=== PATIENT | female | born 1960 | race Caucasian/White ===

== ENCOUNTER 2018-02-22 19:25 | Observation (INO) | payer OTHER, SELFPAY ==
[2018-02-22] VITALS (10 sets, daily range): BP systolic 113–191; BP diastolic 40–83; PULSE 65–86; RESP 16–24; TEMP 37; O2SAT 18–100; BMI 41.8
--- NOTE | 2018-02-22 19:35 | DI.RAD.S_ITS ---
PROCEDURE: XR CHEST 1V INDICATIONS: SHORTNESS OF BREATH TECHNIQUE: One view of the chest was acquired. COMPARISON: None. FINDINGS: Surgical changes and devices: None. Lungs and pleura: No pleural effusions or pneumothorax. Lungs are clear. Mediastinum: Mediastinal contours appear normal. Heart size is normal. Bones and chest wall: No suspicious bony lesions. Overlying soft tissues appear unremarkable. IMPRESSION: No acute pulmonary process. Dictated by: Rosa Lopez M.D. on 02/22/2018 at 20:34 Approved by: Rosa Lopez M.D. on 02/22/2018 at 20:35
--- NOTE | 2018-02-22 19:37 | ED.CHESTPAIN ---
HPI - Chest Pain General Chief Complaint: Chest Pain Stated Complaint: CHEST PAIN COPD COUGH Time Seen by Provider: 02/22/18 19:34 Source: patient Mode of arrival: ambulatory Limitations: no limitations History of Present Illness HPI narrative: The patient is a 57-year-old female who has a history of hypertension hyperlipidemia diabetes and COPD. Presenting with chest pain and shortness of breath. She says she could not sleep last night she describes it as esophagus pain but says this is different than her GERD. She also has a cough with more sputum than normal. She denies any fever or chills. She has also tried her inhalers without any relief. She does cough every time she takes in a deep breath. Her pain is constant nonradiating across her whole chest but not to her back shoulders or jaw. No history of coronary artery disease. She is currently on Chantix trying to quit smoking. She has smoked 2 packs a day for 30 years. MD complaint: chest pain and other (Short of breath) Duration: constant Onset: during rest and during exertion Pain location: substernal Severity: moderate Quality: tightness and dull Treatments prior to arrival chest pain: aspirin ([id number]) Related Data Home Medications Medication Instructions Recorded Confirmed albuterol sulfate [ProAir HFA] 02/22/18 atorvastatin 02/22/18 gabapentin QID 02/22/18 insulin aspart U-100 [Novolog 02/22/18 U-100 Insulin aspart] insulin glargine [Lantus Solostar BID 02/22/18 U-100 Insulin] omeprazole 2 cap 02/22/18 varenicline [Chantix Continuing 02/22/18 Month Box] Allergies Allergy/AdvReac Type Severity Reaction Status Date / Time Penicillins Allergy Intermediate Hives Verified 02/22/18 19:54 Review of Systems Review of Systems All systems reviewed & are unremarkable except as noted in HPI and below Constitutional Denies chills, Denies fever(s), Denies lethargy and Denies weakness Cardiovascular Reports chest pain, Denies syncope, Denies rapid heart rate, Denies irregular heart rhythm, Denies lightheadedness, Denies radiating jaw, neck or arm pain, Denies palpitations, Reports dyspnea and Denies orthopnea Respiratory Denies chest congestion, Reports excessive phlegm production, Denies pain on inspiration, Denies pain with cough and Reports dyspnea Gastrointestinal Gastrointestinal: Denies abdominal pain, Denies change in bowel habits, Denies diarrhea, Denies nausea and Denies vomiting Musculoskeletal Denies back pain, Denies muscle weakness, Denies numbness and Denies tingling Integumentary/Breasts Denies pruritus, Denies erythema, Denies rash and Denies wounds Neurologic Denies syncope, Denies numbness, Denies tingling and Denies weakness Endocrine Denies palpitations PFSH Medical History COPD (chronic obstructive pulmonary disease) (Acute) Colon cancer (Acute) Diabetes (Acute) GERD (gastroesophageal reflux disease) (Acute) Hyperlipidemia (Acute) Hypertension (Acute) Social History household members: spouse Smoking Status: Current every day smoker Tobacco: How many years used: 60 alcohol intake: never substance use type: does not use Exam Initial Vital Signs Initial Vital Signs: Vital Signs Temperature 98.6 F 02/22/18 19:32 Pulse Rate 85 02/22/18 19:32 Respiratory Rate 24 02/22/18 19:32 Blood Pressure 191/83 H 02/22/18 19:32 Pulse Oximetry 99 02/22/18 19:32 GENERAL: Alert and oriented x3 appears in mild respiratory distress due to coughing HEENT: Head atraumatic,EOMI, pupils reactive, face symmetric CARDIOVASCULAR: Regular rate and rhythm without murmurs, rubs or gallops. Pain is not reproducible with palpation RESPIRATORY: Able to speak in full sentences coughs with deep breaths decreased breath sounds bilaterally at bases no wheezing ABDOMEN: Soft, nontender. Normoactive bowel sounds all 4 quadrants. No guarding or rebound. EXTREMITIES: Normal range of motion, no clubbing or edema. Neurovascularly intact NEUROLOGICAL: Alert and oriented x4.Normal gait and speech. Cranial nerves II through XII grossly intact. SKIN: Warm, dry, no laceration, no petechiae, no rashes or lesions. Scores HEART Score Heart Score history: Moderately Suspicious Heart Score EKG: Normal Heart Score Age: 45-64 years old Heart Score risk factors: > 3 risk factors or hx of atherosclerotic disease Heart Score troponin: < or = to normal limit Heart Score Total: 4 PERC Score Age greater than or equal to 50 years: Yes Heart rate greater than or equal to 100 bpm: No Room Air O2 Sat less than 95%: No Unilateral leg swelling: No Recent trauma or surgery: No Hemoptysis: No Prior PE or DVT: No Hormone Use: No Total PERC Score: 1 Wells' Criteria for PE Clinical signs and symptoms of PE: Yes PE is #1 Dx or equally likely: No Heart rate > 100: No Immobilization at least 3 days or surg in previous 4 weeks: No History of PE or DVT: No Hemoptysis: No Malignancy w/Treatment within 6 months or palliative: Yes Wells' PE Score total: 4 Course Orders Ordered: ED Orders 02/22/18 19:34 EKG-12 Lead Stat 02/22/18 19:35 XR chest 1V Stat 02/22/18 20:45 B Type Natriuretic Peptide Stat Blood Culture Stat Complete Blood Count AUTO DIFF Stat Comprehensive Metabolic Panel Stat Lactate (Lactic Acid) Stat Lipase Stat Magnesium Stat Partial Thromboplastin Time Stat Procalcitonin Stat Prothrombin Time INR Stat Troponin & CK Cardiac Panel Stat 02/22/18 21:06 CT angio chest PE protocol Stat 02/23/18 00:07 Consult to Physician Routine Consult to Respiratory Therapy Evaluate & Treat EC echo doppler complete Stat 02/23/18 06:00 Troponin I Stat Sodium Chloride (Normal Saline 0.9%) 1,000 mls @ 125 mls/hr IV CONT LAMINE Last Admin: 02/23/18 00:49 Dose: 125 mls/hr Ondansetron HCl (Zofran) 4 mg IV Q4HR PRN PRN Reason: Nausea And Vomiting Discontinued Medications Acetaminophen (Tylenol) 650 mg PO NOW ONE Stop: 02/22/18 20:56 Last Admin: 02/22/18 20:58 Dose: 650 mg Albuterol (Ventolin) 2.5 mg INH NOW ONE Stop: 02/22/18 21:07 Last Admin: 02/22/18 21:19 Dose: 2.5 mg Albuterol/Ipratropium (Duoneb) 3 ml INH NOW ONE Stop: 02/22/18 19:35 Last Admin: 02/22/18 20:06 Dose: 3 ml Sodium Chloride (Normal Saline 0.9%) 1,000 mls @ 1,000 mls/hr IV BOLUS ONE Stop: 02/22/18 21:56 Last Infusion: 02/22/18 23:38 Dose: 500 mls/hr Admin: 02/22/18 20:58 Dose: 1,000 mls/hr Lorazepam (Ativan) 0.5 mg IV NOW ONE Stop: 02/22/18 22:21 Last Admin: 02/22/18 22:33 Dose: 0.5 mg Methylprednisolone (Solu-Medrol 125 Mg Vial) 125 mg IV NOW ONE Stop: 02/22/18 19:35 Last Admin: 02/22/18 19:57 Dose: 125 mg Nicotine (Nicoderm) 21 mg TOP NOW ONE Stop: 02/22/18 22:21 Last Admin: 02/22/18 23:46 Dose: 21 mg Nitroglycerin (Nitrostat) 0.4 mg SL NOW ONE Stop: 02/22/18 19:35 Last Admin: 02/22/18 19:53 Dose: 0.4 mg Vital Signs - 8 hr 02/22/18 19:32 02/22/18 19:53 02/22/18 19:59 Temperature 98.6 F Pulse Rate 85 72 65 Respiratory Rate 24 Blood Pressure 191/83 H 180/72 H 133/66 Blood Pressure [Left Arm] Pulse Oximetry 99 02/22/18 20:00 02/22/18 21:00 02/22/18 21:30 Temperature Pulse Rate 75 77 82 Respiratory Rate 22 17 16 Blood Pressure Blood Pressure [Left Arm] 133/66 129/49 L 113/53 L Pulse Oximetry 100 100 100 02/22/18 22:30 02/22/18 23:00 02/23/18 00:19 Temperature 98.1 F Pulse Rate 83 81 80 Respiratory Rate 18 20 16 Blood Pressure 137/68 Blood Pressure [Left Arm] 117/40 L 117/57 L Pulse Oximetry 18 L 99 95 MDM - Chest Pain Lab Data Attestation: I reviewed the patient's lab results. Result diagrams: 02/22/18 20:45 02/22/18 20:45 Lab Results 02/22/18 02/22/18 02/22/18 Range/Units 20:45 20:45 20:45 WBC 13.9 H (4.5-11.0) X10^3/uL RBC 4.59 (4.0-5.2) X10^6/uL Hgb 13.6 (12.0-16.0) g/dL Hct 40.7 (36-46) % MCV 88.7 (80-100) fL MCH 29.6 (26-34) PG MCHC 33.3 (30-36) % RDW 13.2 (11.6-14.8) % Plt Count 350 (150-400) X10^3/uL Neut % (Auto) 47.8 L (50-75) % Lymph % (Auto) 43.7 H (25-40) % [place] % (Auto) 6.2 (3-14) % Eos % (Auto) 1.4 L (2-4) % Baso % (Auto) 0.9 (0-2) % Neut # (Auto) 6600 H (7145-7801) /uL PT 9.7 L (10.1-12.7) SECONDS INR 0.9 (0.9-1.3) APTT 32 (26.4-36.2) SECONDS Sodium 135 L (137-145) mmol/L Potassium 3.9 (3.4-5.1) mmol/L Chloride 102 (98-107) mmol/L Carbon Dioxide 24 (22-32) mmol/L BUN 9 (7-17) mg/dL Creatinine 1.00 (0.52-1.04) mg/dL Estimated GFR 57.1 L (>60) mL/min BUN/Creatinine Ratio 9.0 (6-22) Glucose 160 H (70-100) mg/dL Lactate (0.7-2.1) mmol/L Calcium 8.4 (8.4-10.2) mg/dL Magnesium 1.6 (1.6-2.3) mg/dL Total Bilirubin 0.4 (0.2-1.3) mg/dL AST 20 (14-36) IU/L ALT 19 (9-52) IU/L Alkaline Phosphatase 83 (38-126) U/L Total Creatine Kinase 87 (30-135) U/L CK-MB (CK-2) TNP CK-MB (CK-2) Rel Index TNP Troponin I < 0.012 (0.01-0.034) ng/mL B-Natriuretic Peptide < 100.0 (<100) Total Protein 6.5 (6.3-8.2) g/dL Albumin 3.6 (3.5-5.0) g/dL Globulin 2.9 (1.7-4.1) g/dL Albumin/Globulin Ratio 1.2 (1.0-2.8) Lipase 33 (23-300) U/L Procalcitonin (<0.5) ng/mL 02/22/18 02/22/18 Range/Units 20:45 20:45 WBC (4.5-11.0) X10^3/uL RBC (4.0-5.2) X10^6/uL Hgb (12.0-16.0) g/dL Hct (36-46) % MCV (80-100) fL MCH (26-34) PG MCHC (30-36) % RDW (11.6-14.8) % Plt Count (150-400) X10^3/uL Neut % (Auto) (50-75) % Lymph % (Auto) (25-40) % [place] % (Auto) (3-14) % Eos % (Auto) (2-4) % Baso % (Auto) (0-2) % Neut # (Auto) (1307-3630) /uL PT (10.1-12.7) SECONDS INR (0.9-1.3) APTT (26.4-36.2) SECONDS Sodium (137-145) mmol/L Potassium (3.4-5.1) mmol/L Chloride (98-107) mmol/L Carbon Dioxide (22-32) mmol/L BUN (7-17) mg/dL Creatinine (0.52-1.04) mg/dL Estimated GFR (>60) mL/min BUN/Creatinine Ratio (6-22) Glucose (70-100) mg/dL Lactate 1.7 (0.7-2.1) mmol/L Calcium (8.4-10.2) mg/dL Magnesium (1.6-2.3) mg/dL Total Bilirubin (0.2-1.3) mg/dL AST (14-36) IU/L ALT (9-52) IU/L Alkaline Phosphatase (38-126) U/L Total Creatine Kinase (30-135) U/L CK-MB (CK-2) CK-MB (CK-2) Rel Index Troponin I (0.01-0.034) ng/mL B-Natriuretic Peptide (<100) Total Protein (6.3-8.2) g/dL Albumin (3.5-5.0) g/dL Globulin (1.7-4.1) g/dL Albumin/Globulin Ratio (1.0-2.8) Lipase (23-300) U/L Procalcitonin < 0.05 (<0.5) ng/mL Urine Dip Bedside Urine Glucose Negative Bedside Urine Bilirubin - Negative Bedside Urine Ketone - Negative Urine Specific [place] 1.015 Bedside Urine Occult Blood - Negative Bedside Urine pH 6.0 Bedside Urine Protein - Negative Bedside Urine Urobilinogen +/- 1mg Bedside Urine Nitrite - Negative Bedside Urine Leukocytes - Negative Esterase Imaging Data Chest x-ray: Radiologist's impression: PROCEDURE: XR CHEST 1V INDICATIONS: SHORTNESS OF BREATH TECHNIQUE: One view of the chest was acquired. COMPARISON: None. FINDINGS: Surgical changes and devices: None. Lungs and pleura: No pleural effusions or pneumothorax. Lungs are clear. Mediastinum: Mediastinal contours appear normal. Heart size is normal. Bones and chest wall: No suspicious bony lesions. Overlying soft tissues appear unremarkable. IMPRESSION: No acute pulmonary process. Dictated by: Rosa Lopez M.D. on 02/22/2018 at 20:34 CT PE: Radiologist's impression: PROCEDURE: CT ANGIO CHEST PE PROTOCOL INDICATIONS: SOB chest pain, hx of colon CA TECHNIQUE: After the administration of intravenous contrast, 2 mm thick sections acquired from the pulmonary apices to the posterior costophrenic angles. 3-dimensional maximum intensity projection (MIP) coronal and sagittal reformats were then acquired through the thorax. For radiation dose reduction, the following was used: automated exposure control, adjustment of mA and/or kV according to patient size. COMPARISON: [facility], , XR CHEST 1V, 02/22/2018, 19:38. FINDINGS: Image quality: Excellent. Pulmonary arteries: Pulmonary arteries are normal in size, and demonstrate no intraluminal filling defects to suggest central pulmonary embolism. Lungs and pleura: Lungs are clear. No pleural effusions or pneumothorax. Central and peripheral airways are patent. Mediastinum: Heart size is normal, trace pericardial effusion. No mediastinal or hilar adenopathy. Thoracic aorta is normal in caliber and enhancement. Esophagus is normal in caliber, without hiatal hernia. Bones and chest wall: No suspicious bony lesions. Ribs and thoracic spine appear intact throughout. Thyroid gland is unremarkable. No axillary or supraclavicular adenopathy. Abdomen: Visualized upper abdominal solid organs appear normal in the early arterial phase of enhancement. IMPRESSION: 1. No pulmonary embolism. 2. Lungs are clear. 3. Trace pericardial effusion. Dictated by: Rosa Lopez M.D. on 02/22/2018 at 21:46 ECG Data Attestation: I personally reviewed and interpreted this ECG as follows: Prior ECG tracings: not available for review Interpretation: EKG 1.: Sinus rhythm rate 80, nonspecific T-wave changes, here interval 159, QRS 98, QTC 415, no ST elevations no ST depressions. EKG 2.: Sinus rhythm rate 81 no T-wave inversions on this EKG, no ST elevations or depressions no Q-waves Core Measures Measure exclusions: not indicated MDM Narrative Medical decision making narrative: Patient's pain has improved unclear what caused resolution of her pain. Nitroglycerin gave her headache and did not really help with her pain. She received 2 breathing treatments and some Protonix. Now chest pain free. CT does reveal a small trace pericardial effusion. No signs of cardiac tamponade. Pain does not seem to be positional, this is likely chronic. However she has multiple risk factors for coronary artery disease, her primary physician is in [place] as she does not have close follow-up. Discussed case with Dr. Nuñez. Agrees with chest pain observation Discharge Plan Departure Patient Disposition: Admitted as Observation Clinical Impression: Chest pain, Pericardial effusion Discharge Date/Time: 02/22/18 23:54 Interventions: ED Discharge Assessment Last Done: 02/22/18 23:55 Admit Date/Time: 02/22/18 23:29 Admit Provider: Murray Nuñez
[2018-02-22] MEDS: NITROGLYCERIN 0.4 MG SL TAB SL (19:53)
[2018-02-22] MEDS: methylPREDNISolone 125 MG/2 ML VIAL IV (19:57)
[2018-02-22] MEDS: ALBUTEROL/IPRATROPIUM 3 ML AMPUL INH (20:06)
[2018-02-22 20:54] LABS: Add Manual Diff / Slide Review NO; Basophils Percent Auto 0.9 % (0-2); Eosinophils Percent Auto 1.4 % (2-4); Hematocrit 40.7 % (36-46); Hemoglobin 13.6 g/dL (12.0-16.0); Lymphocytes Percent Auto 43.7 % (25-40); Mean Corpuscular HGB Conc 33.3 % (30-36); Mean Corpuscular Hemoglobin 29.6 PG (26-34); Mean Corpuscular Volume 88.7 fL (80-100); Monocytes Percent Auto 6.2 % (3-14); Neutrophils Absolute Auto 6600 /uL (3000-5900); Neutrophils Percent Auto 47.8 % (50-75); Platelet Count 350 X10^3/uL (150-400); Red Blood Cell Count 4.59 X10^6/uL (4.0-5.2); Red Cell Distribution Width 13.2 % (11.6-14.8); White Blood Cell Count 13.9 X10^3/uL (4.5-11.0)
[2018-02-22] MEDS: SODIUM CHLORIDE 0.9% 1,000 ML 1000 ML IV (20:58)
[2018-02-22] MEDS: ACETAMINOPHEN 325 MG TABLET 650 MG PO (20:58)
[2018-02-22 21:01] LABS: INR 0.9 (0.9-1.3); Prothrombin Time 9.7 SECONDS (10.1-12.7)
[2018-02-22 21:04] LABS: PTT Partial Thromboplastin Tim 32 SECONDS (26.4-36.2)
[2018-02-22 21:05] LABS: Lactate (Lactic Acid) 1.7 mmol/L (0.7-2.1)
[2018-02-22 21:06] LABS: Alanine Aminotransferase 19 IU/L (9-52); Albumin 3.6 g/dL (3.5-5.0); Albumin Globulin Ratio 1.2 (1.0-2.8); Alkaline Phosphatase 83 U/L (38-126); Aspartate Aminotransferase 20 IU/L (14-36); Bilirubin Total 0.4 mg/dL (0.2-1.3); Blood Urea Nitrogen 9 mg/dL (7-17); Calcium 8.4 mg/dL (8.4-10.2); Carbon Dioxide 24 mmol/L (22-32); Chloride 102 mmol/L (98-107); Creatine Kinase 87 U/L (30-135); Estimated Glomerular Filt Rate 57.1 mL/min (>60); Globulin 2.9 g/dL (1.7-4.1); Glucose 160 mg/dL (70-100); HEMOLYSIS < 15 (0-50); Lipase 33 U/L (23-300); Magnesium 1.6 mg/dL (1.6-2.3); Potassium 3.9 mmol/L (3.4-5.1); Sodium 135 mmol/L (137-145); Total Protein 6.5 g/dL (6.3-8.2)
--- NOTE | 2018-02-22 21:06 | DI.CT.S_ITS ---
PROCEDURE: CT ANGIO CHEST PE PROTOCOL INDICATIONS: SOB chest pain, hx of colon CA TECHNIQUE: After the administration of intravenous contrast, 2 mm thick sections acquired from the pulmonary apices to the posterior costophrenic angles. 3-dimensional maximum intensity projection (MIP) coronal and sagittal reformats were then acquired through the thorax. For radiation dose reduction, the following was used: automated exposure control, adjustment of mA and/or kV according to patient size. COMPARISON: Located [facility], CR, XR CHEST 1V, 02/22/2018, 19:38. FINDINGS: Image quality: Excellent. Pulmonary arteries: Pulmonary arteries are normal in size, and demonstrate no intraluminal filling defects to suggest central pulmonary embolism. Lungs and pleura: Lungs are clear. No pleural effusions or pneumothorax. Central and peripheral airways are patent. Mediastinum: Heart size is normal, trace pericardial effusion. No mediastinal or hilar adenopathy. Thoracic aorta is normal in caliber and enhancement. Esophagus is normal in caliber, without hiatal hernia. Bones and chest wall: No suspicious bony lesions. Ribs and thoracic spine appear intact throughout. Thyroid gland is unremarkable. No axillary or supraclavicular adenopathy. Abdomen: Visualized upper abdominal solid organs appear normal in the early arterial phase of enhancement. IMPRESSION: 1. No pulmonary embolism. 2. Lungs are clear. 3. Trace pericardial effusion. Dictated by: oRsa Lopez M.D. on 02/22/2018 at 21:46 Approved by: Rosa Lopez M.D. on 02/22/2018 at 21:48
[2018-02-22 21:18] LABS: Troponin I < 0.012 ng/mL (0.01-0.034)
[2018-02-22] MEDS: ALBUTEROL 2.5 MG/3 ML NEB (ADULT) INH (21:19)
[2018-02-22 21:20] LABS: B Type Natriuretic Peptide < 100.0 (<100)
[2018-02-22 21:29] LABS: Procalcitonin < 0.05 ng/mL (<0.5)
[2018-02-22] MEDS: LORazepam 2 MG/ML SYRINGE 0.5 MG IV (22:33)
[2018-02-22] MEDS: NICOTINE 21 MG PATCH TOP (23:46)
--- NOTE | 2018-02-23 00:07 | DI.ECHO.S_ITS ---
[facility]---------+ [facility] +---------+ : : [address] : : : : [id number] : : : : Phone: [phone] Echocardiogram Report + + :Name: LIBBY SEVERINO Study Date: 02/23/2018 Height: 65 in : :[facility] Exam Location: IS Weight: 251 lb : : Gender: Female BSA: 2.2 m2 : :: 1960 Age: 57 yrs BP: 161/76 mmHg: :Reason For Study: Pericardial Effusion/Chest Pain : :Ordering Physician: Yaakov : :Hospitalist Performed By: Nora Riley : :Referring: KAIDEN DAN : + + Interpretation Summary Technically difficult echocardiogram due to patient body habitus. The patient was imaged in a supine position. A contrast injection of Definity was performed to improve assessment of LV function. There is no prior echocardiogram noted for this patient. -The left ventricle is grossly normal size. The ejection fraction is estimated to be 60-65%. -There is a subtle, mild hypokinesis of the apical anterior and apical anteroseptal wall, -The right ventricle is not well visualized. -There is mild to moderate mitral annular calcification. The mitral valve mean gradient is 4.8 mmHg. -There is no hemodynamically significant valvular aortic stenosis. -Pulmonary artery pressures cannot be estimated because of the lack of a measurable TR jet velocity. -The IVC is dilated (diameter is greater than 2.1 cm) yet it collapses greater than 50% with a sniff. This suggests a right atrial pressure of 8 mm Hg. -Technically difficult study. The LVEF is normal and there appears to be a fat pad but no pericardial effusion and no chamber collapse. -There is a subtle apical hypokinesis. Procedure: A two-dimensional transthoracic echocardiogram with color flow and Doppler was performed. Technically difficult echocardiogram due to patient body habitus. The patient was imaged in a supine position. A contrast injection of Definity was performed to improve assessment of LV function. There is no prior echocardiogram noted for this patient. Images from the parasternal window were difficult to obtain and are suboptimal in quality. The subcostal views were difficult to obtain and are suboptimal in quality. The suprasternal notch views were difficult to obtain and are suboptimal in quality. The patient was in normal sinus rhythm during the exam. Left Ventricle: The left ventricle is grossly normal size. The ejection fraction is estimated to be 60-65%. There is a subtle, mild hypokinesis of the apical anterior and apical anteroseptal wall,. Diastolic function could not be accurately assessed due to confounding valvular disease. Right Ventricle: The right ventricle is not well visualized. Atria: The left atrium is not well visualized. Right atrium not well visualized. Mitral Valve: The mitral valve leaflets appear mildly thickened, but open well. There is mild to moderate mitral annular calcification. The mitral valve mean gradient is 4.8 mmHg. There is trace mitral regurgitation. Aortic Valve: The aortic valve is not well visualized. There is no hemodynamically significant valvular aortic stenosis. No aortic regurgitation is present. Tricuspid Valve: The tricuspid valve is not well visualized, but is grossly normal. There is a trace or physiologic amount of tricuspid regurgitation. Pulmonary artery pressures cannot be estimated because of the lack of a measurable TR jet velocity. Pulmonic Valve: The pulmonic valve is not well visualized. Great Vessels: The aortic root is not well visualized. The ascending aorta could not be visualized. The IVC is dilated (diameter is greater than 2.1 cm) yet it collapses greater than 50% with a sniff. This suggests a right atrial pressure of 8 mm Hg. Pericardium/ Pleura There is a trivial pericardial effusion noted. There is an anterior echo-free space consistent with a fat pad. There is no pleural effusion. MMode/2D Measurements & Calculations LVOT diam: 2.0 cm IVC diam: 2.4 cm Doppler Measurements & Calculations Ao V2 max: 149.4 cm/sec LVOT Max Trev: 111.1 cm/sec Ao V2 mean: 120.4 cm/sec LV V1 max P.9 mmHg Ao max P.9 mmHg LV V1 VTI: 28.1 cm Ao mean P.8 mmHg KATHLEEN(I,D): 2.6 cm2 Ao V2 VTI: 32.7 cm KATHLEEN(V,D): 2.3 cm2 sev ratio: 0.86 KATHLEEN indexed to BSA (cm^2/m^2): 1.2 MVA(VTI): 2.7 cm2 MV V2 mean: 100.3 cm/sec MV mean P.8 mmHg MV V2 VTI: 31.7 cm Electronically signed by: Daniel Orona M.D. on Reading Physician:02/23/2018 04:28 PM
[2018-02-23 00:15] VITALS: BMI 41.8
[2018-02-23 00:19] VITALS: BP 137/68; PULSE 80; RESP 16; TEMP 36.7; O2SAT 95
[2018-02-23] MEDS: SODIUM CHLORIDE 0.9% 1,000 ML 125 ML IV (00:49)
[2018-02-23 05:31] VITALS: BP 149/71; PULSE 87; RESP 18; TEMP 36.5; O2SAT 97
[2018-02-23 06:28] LABS: Troponin I < 0.012 ng/mL (0.01-0.034)
[2018-02-23 07:45] VITALS: BP 142/72; PULSE 84; RESP 22; TEMP 36.6; O2SAT 96
[2018-02-23 07:52] VITALS: O2SAT 96
[2018-02-23 08:07] LABS: C-Reactive Protein Quant 0.9 mg/dL (<1.0)
--- NOTE | 2018-02-23 08:12 | P.HP_ITS ---
History of Present Illness Date Patient Seen: 02/23/18 Time Patient Seen: 08:08 Chief complaint: CHEST PAIN Narrative: 57-year-old female presents with chest pain. Chest pain onset at rest started in the middle radiated to both breasts. Lasted for maybe an hour or so. Nonexertional seem to get better with certain positions. Now totally gone. No shortness of breath with this but she has been noting increased productive cough over the last 24 hr. No fevers. She is chronic smoker 2 packs per day trying to quit. Patient History Medical History COPD (chronic obstructive pulmonary disease) (Acute) Colon cancer (Acute) Diabetes (Acute) GERD (gastroesophageal reflux disease) (Acute) Hyperlipidemia (Acute) Hypertension (Acute) Family & Social History Family History: Reviewed 02/23/18 by Murray Nuñez MD Social History: household members spouse Prior Living Arrangements House Safety & Behavioral: Feels Safe in Current Yes Environment Been Physically Hurt or No Threatened By a Person Suicidal Ideation Description None Suicide Plan Description No Plan Tobacco & Substance use: Tobacco type cigarettes Smoking Status Current every day smoker Smoking packs per day 2 alcohol intake never alcohol intake frequency 0-2 drinks per day Substance Use Type does not use Meds Home Medications Medication Instructions Recorded Confirmed Type albuterol sulfate [ProAir HFA] 02/22/18 History atorvastatin 02/22/18 History gabapentin QID 02/22/18 History insulin aspart U-100 [Novolog 02/22/18 History U-100 Insulin aspart] insulin glargine [Lantus Solostar BID 02/22/18 History U-100 Insulin] omeprazole 2 cap 02/22/18 History varenicline [Chantix Continuing 02/22/18 History Month Box] Allergies Allergy/AdvReac Type Severity Reaction Status Date / Time Penicillins Allergy Intermediate Hives Verified 02/22/18 19:54 Review of Systems Constitutional Constitutional: Denies chills and Denies fever(s) Eyes Eyes: Reports system reviewed; no additional complaints, except as documented ENT Ears, Nose, Mouth, and Throat: Yes system reviewed; no additional complaints, except as documented Cardiovascular Cardiovascular: Reports chest pain, Reports chest pain at rest, Denies chest pain with activity, Denies fast heart rate, Denies irregular heart rhythm, Denies leg swelling, Denies rapid, pounding, or irregular heartbeat, Denies shortness of breath and Denies shortness of breath with activity Respiratory Respiratory: Reports cough, Denies pain on inspiration, Denies dyspnea, Denies dyspnea on exertion and Reports wheezing Gastrointestinal Gastrointestinal: Reports system reviewed and no additional complaints, except as documented Genitourinary Genitourinary: Reports system reviewed and no additional complaints, except as documented Musculoskeletal Musculoskeletal: Reports system reviewed; no additional complaints, except as documented Integumentary/Breasts Skin/Breast: Reports system reviewed and no additional complaints, except as documented Neurologic Neurologic: Reports system reviewed and no additional complaints, except as documented Psychiatric Psychiatric: Reports system reviewed and no additional complaints, except as documented Endocrine Endocrine: Reports system reviewed and no additional complaints, except as documented and Denies palpitations Hematologic/Lymphatic Hematologic/Lymphatic: Reports system reviewed and no additional complaints, except as documented Allergic/Immunologic Allergic/Immunologic: Reports system reviewed and no additional complaints, except as documented and Reports wheezing Exam Vital Signs (past 8 hours): - 02/23/18 00:19 02/23/18 05:31 02/23/18 07:52 Temperature 98.1 F 97.7 F Pulse Rate 80 87 Respiratory Rate 16 18 Blood Pressure 137/68 149/71 H Pulse Oximetry 95 97 96 Oxygen Delivery Method Room Air Narrative Exam Narrative: Middle-aged female no acute distress coughing quite a lot almost and coughing fits. Oropharynx clear Neck no JVD no bruit Lungs mild diffuse scattered rhonchi Heart regular rhythm Abdomen obese nontender Lower extremities no edema Skin warm and dry Neuro exam awake alert oriented speech normal no focal deficits Objective Labs Result Diagrams: 02/22/18 20:45 02/22/18 20:45 Labs: Laboratory Results - last 24 hr 02/22/18 02/22/18 02/22/18 20:45 20:45 20:45 WBC 13.9 H RBC 4.59 Hgb 13.6 Hct 40.7 MCV 88.7 MCH 29.6 MCHC 33.3 RDW 13.2 Plt Count 350 Neut % (Auto) 47.8 L Lymph % (Auto) 43.7 H Oliver % (Auto) 6.2 Eos % (Auto) 1.4 L Baso % (Auto) 0.9 Neut # (Auto) 6600 H PT 9.7 L INR 0.9 APTT 32 Sodium 135 L Potassium 3.9 Chloride 102 Carbon Dioxide 24 BUN 9 Creatinine 1.00 Estimated GFR 57.1 L BUN/Creatinine Ratio 9.0 Glucose 160 H Lactate Calcium 8.4 Magnesium 1.6 Total Bilirubin 0.4 AST 20 ALT 19 Alkaline Phosphatase 83 Total Creatine Kinase 87 CK-MB (CK-2) TNP CK-MB (CK-2) Rel Index TNP Troponin I < 0.012 B-Natriuretic Peptide < 100.0 Total Protein 6.5 Albumin 3.6 Globulin 2.9 Albumin/Globulin Ratio 1.2 Lipase 33 Procalcitonin 02/22/18 02/22/18 02/23/18 20:45 20:45 05:55 WBC RBC Hgb Hct MCV MCH MCHC RDW Plt Count Neut % (Auto) Lymph % (Auto) Oliver % (Auto) Eos % (Auto) Baso % (Auto) Neut # (Auto) PT INR APTT Sodium Potassium Chloride Carbon Dioxide BUN Creatinine Estimated GFR BUN/Creatinine Ratio Glucose Lactate 1.7 Calcium Magnesium Total Bilirubin AST ALT Alkaline Phosphatase Total Creatine Kinase CK-MB (CK-2) CK-MB (CK-2) Rel Index Troponin I < 0.012 B-Natriuretic Peptide Total Protein Albumin Globulin Albumin/Globulin Ratio Lipase Procalcitonin < 0.05 Assessment & Plan Plan: Assessment/Plan Narrative: One. Chest pain PE protocol negative initial troponin negative plan for observation status serial troponin EKG cardiac monitoring. 2. Acute bronchitis with underlying COPD. She got 1 dose of steroids in the ER. Plan to add inhaled steroids to her inhalers continue trying to stay quit smoking I will place her on some cough suppressant and antibiotic. 3. Diabetes on insulin plan to continue current doses of insulin. 4. Disposition observation status 5. Code status patient desires to be full code
[2018-02-23 08:19] LABS: Erythrocyte Sedimentation Rate 8 MM/HR (0-20)
[2018-02-23] MEDS: levoFLOXacin 250 MG TABLET 750 MG PO (09:47)
[2018-02-23] MEDS: GABAPENTIN 600 MG TABLET PO ×2 (09:47→13:43)
[2018-02-23] MEDS: INSULIN GLARGINE 100 UNIT/ML 3ML PEN 35 UNIT SUBCUT (09:52)
[2018-02-23] MEDS: INSULIN ASPART 100 UNIT/ML INSULN PEN SUBCUT ×2 (09:52→12:28)
[2018-02-23] MEDS: CODEINE/GUAIFENESIN LIQUID 10 ML PO (10:01)
[2018-02-23] MEDS: BUDESONIDE 0.5 MG/2 ML NEB INH (10:03)
[2018-02-23 10:27] LABS: HCO3 ABG 21 mmol/L (23-27); Oxygen Saturation ABG 100 % (95-100); PCO2 ABG 38.7 mmHg (35-45); PO2 ABG 195 mmHg (80-105); TCO2 ABG 22 mmol/L (23-27); pH ABG 7.33 (7.35-7.45)
[2018-02-23 10:28] LABS: Fractionated Inspired Oxygen 52
[2018-02-23 11:25] VITALS: BP 139/66; PULSE 88; RESP 20; TEMP 36.8; O2SAT 96
--- NOTE | 2018-02-23 15:37 | PC.NURSE ---
patient determined to go home today. notified dr. perez. verbal order to dc home. coughing persists but overall patient states she feels better. family at bedside. kellen called in to Bill at [facility]. she is to continue all of her usual home medications and f/u w/ her pcp in [place] next week. patient felled out a release of information to be sent to her pcp which is on chart for medical records. has been upper 90's on ra all shift.
== END 2018-02-23 15:42 | disposition home or self-care (01) ==
LOC: ED 22:28 → AC 02-23 09:01
PROVIDERS: Admitting Provider Internal Medicine; Emergency Provider Emergency Medicine; Visit Provider Internal Medicine
DX: J20.9 Acute bronchitis, unspecified (principal); J44.0 Chronic obstructive pulmonary disease with (acute) lower respiratory infection; R05 Cough; I10 Essential (primary) hypertension; E78.5 Hyperlipidemia, unspecified; E11.9 Type 2 diabetes mellitus without complications; F17.210 Nicotine dependence, cigarettes, uncomplicated; K21.9 Gastro-esophageal reflux disease without esophagitis; Z79.4 Long term (current) use of insulin
CPT/HCPCS: 36415; 36600; 71045; 71275; 80053; 81003; 82550; 82805; 82962; 83605; 83690; 83735; 83880; 84145; 84484; 85025; 85610; 85651; 85730; 86140; 87040; 93005; 93306; 94640; 94762; 96361; 96374; 96375; 99283; 99285; G0378; J2060; J2930; J7613; Q9957